=== PATIENT | male | born 1955 | race Caucasian/White ===

== ENCOUNTER → 2023-12-03 | Outpatient (CLI) | payer MEDICARE | LOC: RAD 13:55 | DX: M75.111 Incomplete rotator cuff tear or rupture of right shoulder, not specified as traumatic (principal); M25.611 Stiffness of right shoulder, not elsewhere classified; M24.811 Other specific joint derangements of right shoulder, not elsewhere classified; M89.9 Disorder of bone, unspecified; Z98.890 Other specified postprocedural states ==